=== PATIENT | male | born 1950 | race Caucasian/White ===

== ENCOUNTER 2018-12-29 03:39 | Emergency (ER) | payer OTHER ==
[~2018-12-29] VITALS: Ht 180.3 cm; Wt 115.7 kg
[~2018-12-29 03:39] MED LIST: CORE25 PO; FEXOFENADINE H180 MG PO; GLU500 PO; LEVOTHYROXINE0.15 M2 PO; LIPI10 PO; VITAMIN D32000 I2; WARFARIN SODIUM5 MG PO; XARELTO20 M1 PO
[2018-12-29 03:48] VITALS: Ht 180.3 cm; Wt 115.7 kg
[2018-12-29 04:22] LABS: BASOPHIL % 0.5 % (0-2); PLATELET COUNT 155 x10^3mcL (130-400)
[2018-12-29 04:31] LABS: RED CELL DISTRIBUTION WIDTH 19.2 % (11.5-14.5)
[2018-12-29 04:37] LABS: CHLORIDE SERUM 99 mmol/L (98-107); GFR1 > 60 mL/min; GLUCOSE SERUM 142 mg/dL (74-106); POTASSIUM SERUM 4.3 mmol/L (3.5-5.1); SODIUM SERUM 135 mmol/L (136-145)
[2018-12-29 04:42] LABS: ALKALINE PHOSPHATASE 165 U/L (46-116); ALT/SGPT 56 U/L (16-63); AST/SGOT 49 U/L (15-37); BILIRUBIN TOTAL 1.87 mg/dL (0.20-1.00); LIPASE 40 IU/L (73-393); TOTAL PROTEIN, SERUM 6.3 g/dL (6.4-8.2)
[2018-12-29 04:44] LABS: ALBUMIN 3.2 g/dL (3.4-5.0)
[2018-12-29] MEDS ORDERED: ZOCOR40 MG PO (06:29)
[2018-12-29] MEDS ORDERED: ZYLOPRIM300 MG PO (06:30)
[2018-12-29] MEDS ORDERED: TRAZODONE50 M1 PO (06:30)
[2018-12-29] MEDS ORDERED: POTASSIUM CHLO10 MEQ PO (06:30)
[2018-12-29] MEDS ORDERED: XARELTO10 M1 PO (06:31)
[2018-12-29] MEDS ORDERED: LISINOPRIL10 MG PO (06:32)
[2018-12-29] MEDS ORDERED: LEVOTHYROXINE0.1 M2 PO (06:33)
[2018-12-29] MEDS ORDERED: LASIX20 MG PO (06:33)
[2018-12-29] MEDS ORDERED: CARVEDILOL6.25 M1 PO (06:34)
[2018-12-29] MEDS ORDERED: FLOMAX0.4 MG PO (06:35)
[2018-12-29] MEDS ORDERED: VENTOLIN H0.09 MG/A1 INH (06:36)
[2018-12-29] MEDS ORDERED: BUSPIRONE HCL10 MG PO (06:36)
[2018-12-29] MEDS ORDERED: VITAMIN D22000 I1 (06:38)
[2018-12-29 09:35] VITALS: BP 115/75
== END 2018-12-29 09:35 | disposition short-term general hospital (02) ==
LOC: ED 03:39
PROVIDERS: Emergency Medicine
DX: I50.9 Heart failure, unspecified (principal); R30.0 Dysuria; I11.0 Hypertensive heart disease with heart failure; F41.9 Anxiety disorder, unspecified; E78.00 Pure hypercholesterolemia, unspecified
CPT/HCPCS: 83880; J1940; Q0092; Q0162